=== PATIENT | female | born 1990 | race Two or more races ===

== ENCOUNTER 2016-12-21 18:47 | Emergency (ER) | payer MEDICAID ==
[2016-12-22] MEDS ORDERED: diphenhdrAMINE HCL 50 MG/1 ML VL ONE (02:10)
[2016-12-22] MEDS ORDERED: methylPREDNISolone SOD SUCC 125 MG/2 ML VL ONE (02:10)
== END 2016-12-21 20:22 | disposition left against medical advice (07) ==
LOC: ER 18:50
DX: T78.40XA Allergy, unspecified, initial encounter (principal); Z53.21 Procedure and treatment not carried out due to patient leaving prior to being seen by health care provider

== ENCOUNTER 2016-12-22 01:47 | Emergency (ER) | payer MEDICAID ==
[~2016-12-22] VITALS: Ht 152.4 cm; Wt 72.6 kg
[2016-12-22] MEDS ORDERED: diphenhdrAMINE HCL 50 MG/1 ML VL IV ONE (02:15)
[2016-12-22] MEDS ORDERED: methylPREDNISolone SOD SUCC 125 MG/2 ML VL IV ONE (02:15)
[2016-12-22] MEDS ORDERED: SODIUM CHLORIDE 0.9% 1,000 ML IV ONE (02:30)
[2016-12-22] MEDS ORDERED: EPINEPHrine HCL 1 MG/1 ML AMP SC ONE (03:45)
[2016-12-22 03:50] VITALS: BP 121/75
== END 2016-12-22 04:35 | disposition left against medical advice (07) ==
LOC: ER 01:51
DX: L29.9 Pruritus, unspecified (principal); R60.9 Edema, unspecified; R06.02 Shortness of breath
CPT/HCPCS: 96361; 96372; 96374; 96375; 99284; J0171; J7030

== ENCOUNTER 2018-07-24 11:16 | Emergency (ER) | payer MEDICAID ==
[~2018-07-24] VITALS: Ht 152.4 cm; Wt 81.6 kg
[2018-07-24 12:15] LABS: Basophils # (auto) 0 uL; Basophils % (auto) 0.4 % (0.0-2.0); Eosinophils # (auto) 0.3 uL; Eosinophils % (auto) 2.5 % (0.0-7.0); Hematocrit 42.9 % (36.0-46.0); Hemoglobin 14.3 g/dL (12.2-16.2); Lymphocytes # (auto) 3.6 uL; Lymphocytes % (auto) 32.7 % (10.0-50.0); Mean Corpuscular Hemoglobin 29.6 pg (28.0-32.0); Mean Corpuscular Hgb Conc. 33.3 g/dL (32.0-36.0); Mean Corpuscular Volume 88.9 fL (80.0-100.0); Monocytes # (auto) 0.5 uL; Monocytes % (auto) 4.8 % (0.0-12.0); Neutrophils # (auto) 6.6 uL; Neutrophils % (auto) 59.6 % (37.0-80.0); Nucleated Red Blood Cells % 0.1 %; Platelet Count (auto) 377 10^3/uL (140-450); Red Blood Cells 4.82 10^6/uL (4.0-5.20); Red Cell Distribution Width 13.6 % (11.8-14.3); White Blood Cell 11.1 10^3/uL (4.4-10.8)
[2018-07-24 12:43] LABS: INR 0.96 (0.9-1.15)
[2018-07-24 12:50] LABS: Albumin 3.9 g/dL (3.4-5.0); Anion Gap 5 (5-15); Blood Urea Nitrogen 6 mg/dL (7-18); Calcium 9.3 mg/dL (8.5-10.1); Carbon Dioxide 25 mmol/L (21-32); Chloride 109 mmol/L (98-107); Glucose 92 mg/dL (74-106); Magnesium 2.3 mg/dL (1.6-2.6); Potassium 3.8 mmol/L (3.5-5.1); Sodium 139 mmol/L (136-145)
[2018-07-24 12:56] LABS: Alanine Aminotransferase 18 U/L (13-56); Alkaline Phosphatase 88 U/L (45-117); Aspartate Aminotransferase 10 U/L (15-37); BUN/Creatinine Ratio 9.5; Bilirubin, Total 0.3 mg/dL (0.2-1.0); GFR African American 147 mL/min; GFR Non-African American 121 mL/min
[2018-07-24] MEDS: ASPirin 81 mg TAB PO ONE (13:30)
[2018-07-24 15:41] VITALS: BP 132/81
== END 2018-07-24 15:57 | disposition home or self-care (01) ==
LOC: ER 11:21
DX: R07.89 Other chest pain (principal); F41.9 Anxiety disorder, unspecified
CPT/HCPCS: 36415; 71046; 80053; 81002; 81025; 83735; 84443; 84484; 85025; 85379; 85610; 85730; 93005